=== PATIENT | female | born 1995 | race Caucasian/White ===

== ENCOUNTER → 2016-05-26 | Outpatient (CLI) | payer OTHER ==
--- NOTE | 2016-05-26 16:00 | CT ---
EXAMINATION TYPE: CT iac wo/w con DATE OF EXAM: 05/26/2016 3:38 PM COMPARISON: NONE HISTORY: Left sided hearing loss x [address] DLP: 409.00 mGycm Automated exposure control for dose reduction was used. CONTRAST: CT scan of the IACs is performed without and with IV Contrast, patient injected with 100 mL of Omnipa que 300. FINDINGS: The external auditory canals are patent bilaterally. The middle ear ossicles are symmetric and unremarkable. There is no evidence of suspicious surrounding soft tissue density to suggest cho lesteatoma. The scutum is preserved bilaterally. The cochlea and the semicircular canals are symmet liliya and unremarkable. Vestibular aqueduct and internal carotid canal appear unremarkable. Temporoma ndibular joints are maintained bilaterally. Cerebellar pontine angles appear clear. No suspicious en hancement is evident within the internal auditory canals. There is some minimal fluid within the left maxillary sinus. Correlate for acute left maxillary sinus itis. Technique within the right maxillary sinus with air cells. Mastoid air cells has some fluid johanna ng the superior lateral right midportion. Correlate for right mastoiditis. IMPRESSION: 1. Clinical correlation recommended for right mastoiditis. 2. Clinical correlation recommended for mild left maxillary sinusitis.
== END | disposition home or self-care (01) ==
LOC: RADCTMAIN 14:47
PROVIDERS: ATTEND Otolaryngology
DX: H91.90 Unspecified hearing loss, unspecified ear (principal); R93.8 Abnormal findings on diagnostic imaging of other specified body structures
CPT/HCPCS: 70482; Q9967

== ENCOUNTER → 2017-11-22 | Outpatient (CLI) | payer OTHER ==
--- NOTE | 2017-11-22 15:32 | XR ---
EXAMINATION TYPE: XR hand complete RT DATE OF EXAM: 11/22/2017 COMPARISON: NONE HISTORY: Pain TECHNIQUE: Three views are submitted. FINDINGS: The osseous structures are intact. The joint spaces are preserved and there is no acute fracture or dislocation. IMPRESSION: 1. No definite acute fracture or dislocation if symptoms persist, follow-up study in 7 to 10 days wo uld be suggested
--- NOTE | 2017-11-22 15:34 | XR ---
EXAMINATION TYPE: XR wrist complete RT DATE OF EXAM: 11/22/2017 COMPARISON: NONE HISTORY: Pain TECHNIQUE: Four views submitted. FINDINGS: The osseous structures are intact. The joint spaces are preserved and there is no acute fracture or dislocation. IMPRESSION: 1. No definite acute fracture or dislocation if symptoms persist, follow-up study in 7 to 10 days wo uld be suggested
== END | disposition home or self-care (01) ==
LOC: RADXRMAIN 15:04
PROVIDERS: ATTEND Emergency Medicine
DX: S63.501A Unspecified sprain of right wrist, initial encounter (principal)

== ENCOUNTER → 2018-08-30 | Outpatient (CLI) | payer BC ==
--- NOTE | 2018-08-31 00:02 | MR ---
EXAMINATION TYPE: MR wrist RT wo con DATE OF EXAM: 08/30/2018 COMPARISON: None HISTORY: Rt wrist pain Standard multiplanar, multisequence MRI departmental protocol Multiplanar, multisequence images of the right wrist were acquired. FINDINGS: The intercarpal joint spaces overall are fairly normal. There is slight widening of the sca pholunate joint space. There is slight increased fluid at the dorsal aspect of the scapholunate joint space. This measures 5 x 3 mm. Distal radius and ulna appear intact. There is no evidence of a fracture. Proximal metacarpa ls appear intact. The triangular cartilage appears intact. The flexor and extensor tendons of the wr ist appear intact. I see no focal bone destruction. IMPRESSION: There is slight widening of the scapholunate joint space consistent with ligamentous tear. This is no t significantly different than previous wrist x-ray of 08/22/2018 and 11/22/2017. There is small synovi al cyst on the dorsal aspect of the scapholunate joint.
== END | disposition home or self-care (01) ==
LOC: RADMRIMAIN 15:58
PROVIDERS: ATTEND Orthopaedic Surgery
DX: M71.331 Other bursal cyst, right wrist (principal)

== ENCOUNTER 2019-11-27 20:44 | Emergency (ER) | payer BC ==
[2019-11-27 21:02] VITALS: RESP 16
[2019-11-27] MEDS ORDERED: ONDANSETRON 4 MG/2 ML VIAL IVP STA (21:09)
[2019-11-27] MEDS ORDERED: PANTOPRAZOLE 40 MG/10 ML VIAL IVP STA (21:09)
[2019-11-27] MEDS ORDERED: SODIUM CHLORIDE 0.9% 1,000 ML IV STA (21:09)
--- NOTE | 2019-11-27 21:20 | ED ---
Abdominal Pain HPI - General Chief Complaint: Abdominal Pain Stated Complaint: Flank Pain Time Seen by Provider: 11/27/19 21:07 Source: patient Mode of arrival: ambulatory Limitations: no limitations - History of Present Illness Initial Comments: Patient is a 24-year-old female presenting to the emergency department with a chief complaint of abdominal pain. Patient states symptoms started yesterday when she had one episode of nonbilious, nonbloody vomiting. Patient states the pain today has been on and off. Patient states pain is located in the right flank region with radiation to the right lower quadrant region. Patient states sitting or laying makes the pain worse. Patient does report some nausea but no vomiting today. Patient does have history of GERD and did take omeprazole today. Patient not concerned for any STDs. Denies any vaginal bleeding or discharge. She does have history of cholecystectomy. Denies any night sweats fevers or chills. - Related Data Home Medications Medication Instructions Recorded Confirmed Omeprazole [PriLOSEC] 20 mg PO HS 11/20/14 12/29/14 Ondansetron [Zofran] 1 tab PO Q6H PRN 11/20/14 12/31/14 Desogestrel-Ethinyl Estradiol 1 tab PO DAILY 12/29/14 12/29/14 [Apri 28 Day Tablet] Allergies Allergy/AdvReac Type Severity Reaction Status Date / Time No Known Allergies Allergy Verified 11/27/19 21:02 Review of Systems ROS Statement: Those systems with pertinent positive or pertinent negative responses have been documented in the HPI. ROS Other: All systems not noted in ROS Statement are negative. Past Medical History Past Medical History: No Reported History, GERD/Reflux History of Any Multi-Drug Resistant Organisms: None Reported Past Surgical History: Cholecystectomy, Ear Surgery Additional Past Surgical History / Comment(s): BMT CHILD Past Anesthesia/Blood Transfusion Reactions: Motion Sickness Past Psychological History: No Psychological Hx Reported Past Alcohol Use History: None Reported Past Drug Use History: None Reported - Past Family History Mother Family Medical History: No Reported History General Exam Limitations: no limitations General appearance: alert, in no apparent distress Head exam: Present: atraumatic, normocephalic, normal inspection Eye exam: Present: normal appearance, PERRL, EOMI Pupils: Present: normal accommodation ENT exam: Present: normal exam, normal oropharynx, mucous membranes moist, TM's normal bilaterally, normal external ear exam Neck exam: Present: normal inspection, full ROM. Absent: tenderness Respiratory exam: Present: normal lung sounds bilaterally. Absent: wheezes, rales Cardiovascular Exam: Present: regular rate, normal rhythm, normal heart sounds GI/Abdominal exam: Present: soft, tenderness (Right lower quadrant. Positive McBurney point tenderness. Positive obturator and psoas. Negative Rovsing.), normal bowel sounds. Absent: distended, guarding, rebound, rigid, organomegaly, mass, bruit, pulsatile mass, hernia Extremities exam: Present: normal inspection, full ROM, normal capillary refill. Absent: tenderness Back exam: Present: normal inspection, full ROM, CVA tenderness (R) (Mild). Absent: tenderness, CVA tenderness (L), muscle spasm, paraspinal tenderness Neurological exam: Present: alert, oriented X3, normal gait Psychiatric exam: Present: normal affect, normal mood Skin exam: Present: warm, dry, intact, normal color Course Vital Signs 11/27/19 21:00 Temperature 98.1 F Pulse Rate 103 H Respiratory 16 Rate Blood Pressure 138/91 O2 Sat by Pulse 98 Oximetry Medical Decision Making - Medical Decision Making Patient is a 24-year-old female presenting to the emergency department with chief complaint abdominal pain on exam patient is right lower quadrant abdominal pain with a positive McBurney point, so is an obturator but negative Rovsing. CBC CMP UA is unremarkable. Patient is not . Vitals are stable. Given the clinical indication, CT abdomen and pelvis was obtained showing no signs of appendicitis. Patient was given Tylenol, antibiotics and fluids. On R eevaluation patient did report improvement in symptoms. Her last menstrual period was one week ago. Return parameters were thoroughly discussed the patient is understanding and agreeable. She was advised to follow with primary care physician. Case discussed with physician. - Lab Data Result diagrams: 11/27/19 21:23 11/27/19 21:23 Lab Results 11/27/19 11/27/19 11/27/19 Range/Units 21:23 21:23 21:23 WBC 6.2 (3.8-10.6) k/uL RBC 4.59 (3.80-5.40) m/uL Hgb 13.0 (11.4-16.0) gm/dL Hct 39.9 (34.0-46.0) % MCV 86.9 (80.0-100.0) fL MCH 28.2 (25.0-35.0) pg MCHC 32.5 (31.0-37.0) g/dL RDW 12.7 (11.5-15.5) % Plt Count 243 (150-450) k/uL Neutrophils % 48 % Lymphocytes % 40 % Monocytes % 5 % Eosinophils % 3 % Basophils % 1 % Neutrophils # 3.0 (1.3-7.7) k/uL Lymphocytes # 2.5 (1.0-4.8) k/uL Monocytes # 0.3 (0-1.0) k/uL Eosinophils # 0.2 (0-0.7) k/uL Basophils # 0.0 (0-0.2) k/uL Sodium 135 L (137-145) mmol/L Potassium 4.2 (3.5-5.1) mmol/L Chloride 103 (98-107) mmol/L Carbon Dioxide 23 (22-30) mmol/L Anion Gap 9 mmol/L BUN 10 (7-17) mg/dL Creatinine 0.58 (0.52-1.04) mg/dL Est GFR (CKD-EPI)AfAm >90 (>60 ml/min/1.73 sqM) Est GFR (CKD-EPI)NonAf >90 (>60 ml/min/1.73 sqM) Glucose 92 (74-99) mg/dL Calcium 9.3 (8.4-10.2) mg/dL Total Bilirubin 0.6 (0.2-1.3) mg/dL AST 31 (14-36) U/L ALT 20 (4-34) U/L Alkaline Phosphatase 37 L (38-126) U/L Total Protein 7.3 (6.3-8.2) g/dL Albumin 4.6 (3.5-5.0) g/dL Lipase 155 (23-300) U/L Urine Color Colorless Urine Appearance Clear (Clear) Urine pH 6.5 (5.0-8.0) Ur Specific [place] 1.002 (1.001-1.035) Urine Protein Negative (Negative) Urine Glucose (UA) Negative (Negative) Urine Ketones Negative (Negative) Urine Blood Negative (Negative) Urine Nitrite Negative (Negative) Urine Bilirubin Negative (Negative) Urine Urobilinogen <2.0 (<2.0) mg/dL Ur Leukocyte Esterase Small H (Negative) Urine RBC <1 (0-5) /hpf Urine WBC 6 H (0-5) /hpf Ur Squamous Epith Cells <1 (0-4) /hpf Urine Bacteria Rare H (None) /hpf Urine HCG, Qual (Not Detectd) 11/27/19 Range/Units 21:23 WBC (3.8-10.6) k/uL RBC (3.80-5.40) m/uL Hgb (11.4-16.0) gm/dL Hct (34.0-46.0) % MCV (80.0-100.0) fL MCH (25.0-35.0) pg MCHC (31.0-37.0) g/dL RDW (11.5-15.5) % Plt Count (150-450) k/uL Neutrophils % % Lymphocytes % % Monocytes % % Eosinophils % % Basophils % % Neutrophils # (1.3-7.7) k/uL Lymphocytes # (1.0-4.8) k/uL Monocytes # (0-1.0) k/uL Eosinophils # (0-0.7) k/uL Basophils # (0-0.2) k/uL Sodium (137-145) mmol/L Potassium (3.5-5.1) mmol/L Chloride (98-107) mmol/L Carbon Dioxide (22-30) mmol/L Anion Gap mmol/L BUN (7-17) mg/dL Creatinine (0.52-1.04) mg/dL Est GFR (CKD-EPI)AfAm (>60 ml/min/1.73 sqM) Est GFR (CKD-EPI)NonAf (>60 ml/min/1.73 sqM) Glucose (74-99) mg/dL Calcium (8.4-10.2) mg/dL Total Bilirubin (0.2-1.3) mg/dL AST (14-36) U/L ALT (4-34) U/L Alkaline Phosphatase (38-126) U/L Total Protein (6.3-8.2) g/dL Albumin (3.5-5.0) g/dL Lipase (23-300) U/L Urine Color Urine Appearance (Clear) Urine pH (5.0-8.0) Ur Specific [place] (1.001-1.035) Urine Protein (Negative) Urine Glucose (UA) (Negative) Urine Ketones (Negative) Urine Blood (Negative) Urine Nitrite (Negative) Urine Bilirubin (Negative) Urine Urobilinogen (<2.0) mg/dL Ur Leukocyte Esterase (Negative) Urine RBC (0-5) /hpf Urine WBC (0-5) /hpf Ur Squamous Epith Cells (0-4) /hpf Urine Bacteria (None) /hpf Urine HCG, Qual Not Detected (Not Detectd) Disposition Clinical Impression: Abdominal pain, Nausea & vomiting Disposition: HOME SELF-CARE Condition: Stable Instructions (If sedation given, give patient instructions): Abdominal Pain (ED) Additional Instructions: Alternate between Tylenol and Motrin for pain control. Follow-up with a primary care physician. Return to emergency department if symptoms worsen. Is patient prescribed a controlled substance at d/c from ED?: No Referrals: Dale Schultz DO [Primary Care Provider] - 1-2 days Time of Disposition: 22:54
[2019-11-27 21:35] LABS: Basophils % (A) 1 %; Eosinophils # (A) 0.2 k/uL (0-0.7); Eosinophils % (A) 3 %; HCT 39.9 % (34.0-46.0); Lymphocytes # (A) 2.5 k/uL (1.0-4.8); Lymphocytes % (A) 40 %; MCH 28.2 pg (25.0-35.0); MCHC 32.5 g/dL (31.0-37.0); MCV 86.9 fL (80.0-100.0); Mean Platelet Volume 8.2; Monocytes # (A) 0.3 k/uL (0-1.0); Monocytes % (A) 5 %; Neutrophils % (A) 48 %; Platelet Count 243 k/uL (150-450); RBC 4.59 m/uL (3.80-5.40); RDW 12.7 % (11.5-15.5); WBC 6.2 k/uL (3.8-10.6)
[2019-11-27 21:36] LABS: Appearance,Urine Clear (Clear); Bacteria,Urine Rare /hpf; Bilirubin,Urine Negative (Negative); Blood,Urine Negative (Negative); Color,Urine Colorless; Glucose,Urine (UA) Negative (Negative); Ketones,Urine Negative (Negative); Leukocyte Esterase,Urine Small (Negative); Nitrite,Urine Negative (Negative); PH, Urine 6.5 (5.0-8.0); Protein,Urine Negative (Negative); RBC,Urine <1 /hpf (0-5); Specific Gravity,Urine 1.002 (1.001-1.035); Squamous Epithelial Cell,Urine <1 /hpf (0-4); Urobilinogen,Urine <2.0 mg/dL (<2.0); WBC,Urine 6 /hpf (0-5)
[2019-11-27] MEDS ORDERED: ACETAMINOPHEN TAB 325 MG TAB PO STA (21:40)
[2019-11-27 21:42] LABS: ALT 20 U/L (4-34); AST 31 U/L (14-36); African American GFR (CKD) >90 (>60 ml/min/1.73 sqM); Albumin 4.6 g/dL (3.5-5.0); Alkaline Phosphatase 37 U/L (38-126); Anion Gap 9 mmol/L; Blood Urea Nitrogen 10 mg/dL (7-17); Calcium 9.3 mg/dL (8.4-10.2); Carbon Dioxide 23 mmol/L (22-30); Chloride 103 mmol/L (98-107); Glucose 92 mg/dL (74-99); Non-African American GFR(CKD) >90 (>60 ml/min/1.73 sqM); Potassium 4.2 mmol/L (3.5-5.1); Sodium 135 mmol/L (137-145); Total Bilirubin 0.6 mg/dL (0.2-1.3); Total Protein 7.3 g/dL (6.3-8.2)
--- NOTE | 2019-11-27 22:15 | CT ---
EXAMINATION TYPE: CT abdomen pelvis w con DATE OF EXAM: 11/27/2019 COMPARISON: None HISTORY: RLQ pain CT DLP: 705.3 mGycm Automated exposure control for dose reduction was used. CONTRAST: Performed with IV Contrast, patient injected with 100 mL of Isovue 300. Images obtained from the diaphragm to the floor the pelvis with IV contrast. FINDINGS: Lung bases are clear. There is no pleural effusion. Heart size is normal. There is no pericardial eff usion. Liver spleen pancreas stomach appear intact. Bile ducts are not dilated. There are clips from cholecy stectomy. There is no adrenal mass. Kidneys show satisfactory contrast opacification. There is no hyd ronephrosis. Ureters are not dilated. There is no retroperitoneal adenopathy. Bladder distends smooth ly. Uterus is anteverted. There is no free fluid in the pelvis. There is no sign of a pelvic mass. Lumbar spine is intact. Bony pelvis appears intact. There is no mesenteric edema. There is no ascites or free air. There is no sign of a bowel obstructio n. There is no sign of thickened appendix. Appendix appears to be partly seen on coronal image 40. IMPRESSION: Negative CT scan abdomen and pelvis. I do not see a cause for right lower quadrant pain.
[2019-11-27 23:16] VITALS: BP 116/76; PULSE 65; TEMP 99.2
== END 2019-11-27 23:12 | disposition home or self-care (01) ==
LOC: EC 20:44
DX: R10.31 Right lower quadrant pain (principal); R11.2 Nausea with vomiting, unspecified; R10.813 Right lower quadrant abdominal tenderness; K21.9 Gastro-esophageal reflux disease without esophagitis; Z79.899 Other long term (current) drug therapy; Z90.49 Acquired absence of other specified parts of digestive tract
CPT/HCPCS: 36415; 80053; 83690; 85025; 81001; 81025; 74177; 99284; 96374; 96375; 96361 ×2; J2405; C9113; Q9967

== ENCOUNTER 2019-12-10 11:17 | Day surgery (SDC) | payer BC ==
[2019-12-06 10:27] VITALS: BMI 22.4
[~2019-12-10 11:17] MED LIST: LACTATED RINGERS 1,000 ML IV SCH; LIDOCAINE 1% (10MG/ML) FOR IV START INTRADERMA PRN
[2019-12-10] MEDS ORDERED: LACTATED RINGERS 1,000 ML IV ONE (11:28)
[2019-12-10 11:37] VITALS: TEMP 98.1
[2019-12-10] MEDS ORDERED: PROPOFOL 10 MG/ML 20 ML VIAL IV ONE (12:11)
--- NOTE | 2019-12-10 12:14 | P.GSHP ---
History of Present Illness H&P Date: 12/10/19 Chief Complaint: GERD 24-year-old female known to our service. Patient has had increasing reflux. Last EGD 5 years ago. Patient had mild gastritis and a small hernia at that time. Recently went to 40 mg omeprazole once daily. Seems to be doing better. No dysphagia. Past Medical History Past Medical History: GERD/Reflux Additional Past Medical History / Comment(s): migrainres, History of Any Multi-Drug Resistant Organisms: None Reported Past Surgical History: Cholecystectomy, Ear Surgery Additional Past Surgical History / Comment(s): BMT CHILD, EGD Past Anesthesia/Blood Transfusion Reactions: Motion Sickness Smoking Status: Never smoker - Past Family History Mother Family Medical History: No Reported History Medications and Allergies Home Medications Medication Instructions Recorded Confirmed Type Desogestrel-Ethinyl Estradiol 1 tab PO DAILY 12/29/14 12/10/19 History [Apri 28 Day Tablet] Omeprazole 40 mg PO BID 12/06/19 12/10/19 History Allergies Allergy/AdvReac Type Severity Reaction Status Date / Time No Known Allergies Allergy Verified 12/10/19 11:34 Surgical - Exam Vital Signs Temp Pulse Resp BP Pulse Ox 98.1 F 87 16 134/77 96 12/10/19 11:36 12/10/19 11:36 12/10/19 11:36 12/10/19 11:36 12/10/19 11:36 Physical exam: General: Well-developed, well-nourished HEENT: Normocephalic, sclerae nonicteric Abdomen: Nontender, nondistended Extremities: No edema Neuro: Alert and oriented Assessment and Plan (1) GERD (gastroesophageal reflux disease) Narrative/Plan: Will proceed with upper endoscopy. Current Visit: Yes Status: Acute Code(s): K21.9 - GASTRO-ESOPHAGEAL REFLUX DISEASE WITHOUT ESOPHAGITIS SNOMED Code(s): 806005023
[2019-12-10] MEDS ORDERED: IV FLUID CONTINUATION 1,000 ML IV ONE (12:24)
--- NOTE | 2019-12-10 12:24 | P.PCN ---
Date of Procedure: 12/10/19 Procedure(s) Performed: Preoperative Dx: GERD Postoperative Dx: Minimal gastritis, small hiatal hernia Procedure: EGD with Bx Anesthesia: Sedation Endoscopist: Dr. Crane Specimens: Antrum Endoscopic Procedure: The patient was on the endoscopy table in the left decubitus position. The Olympus gastroscope was inserted into the oropharynx and passed under direct visualization to the region of the third portion of the duodenum. From that point the scope was slowly withdrawn inspecting all surfaces carefully. There were no neoplastic inflammatory or polypoid lesions throughout the duodenum. The pylorus was widely patent. The stomach was carefully inspected. There was and mild gastritis present. A biopsy of the antrum took place to rule out H. pylori. Retroflexion revealed a very small hiatal hernia. The GE junction was present only about 0.5 cm above the diaphragmatic hiatus. This was actually smaller than on her last EGD. The esophagus was then carefully examined. There were no neoplastic inflammatory or polypoid lesions throughout the visualized esophagus. The patient was then ta brian to the recovery room in stable condition per anesthesia guidelines. Recommendations: Continue antiacid therapy. Surgical options will be discussed.
[2019-12-10 12:48] VITALS: BP 104/71; PULSE 80; RESP 18
== END 2019-12-10 12:54 | disposition home or self-care (01) ==
LOC: ORWHC2ENDO 11:17
PROVIDERS: ATTEND Surgery
DX: K29.50 Unspecified chronic gastritis without bleeding (principal); K44.9 Diaphragmatic hernia without obstruction or gangrene; K21.9 Gastro-esophageal reflux disease without esophagitis; Z86.69 Personal history of other diseases of the nervous system and sense organs; Z90.49 Acquired absence of other specified parts of digestive tract; Z98.890 Other specified postprocedural states; Z87.898 Personal history of other specified conditions; Z79.899 Other long term (current) drug therapy; Z79.890 Hormone replacement therapy
CPT/HCPCS: 81025; 88305; 43239; J2704

== ENCOUNTER → 2020-02-28 | Outpatient (CLI) | payer BC | END | disposition home or self-care (01) | LOC: LABWHC1 15:12 | PROVIDERS: ATTEND Family Medicine | DX: Z03.818 Encounter for observation for suspected exposure to other biological agents ruled out (principal) | CPT/HCPCS: U0003; C9803 ==

== ENCOUNTER → 2022-02-28 | Outpatient (CLI) | payer BC ==
--- NOTE | 2022-03-01 10:09 | US ---
EXAMINATION TYPE: US kidneys/renal and bladder DATE OF EXAM: 02/28/2022 COMPARISON: CT 11/27/2019, US 03/16/2012 CLINICAL HISTORY: N39.9 UTI. UTI. Hx cholecystectomy EXAM MEASUREMENTS: Right Kidney: 10.8 x 5.7 x 4.5 cm Left Kidney: 10.9 x 6.1 x 5.1 cm Right Kidney: No hydronephrosis or masses seen Left Kidney: No hydronephrosis or masses seen Bladder: Appears anechoic. Bilateral Jets seen: Yes IMPRESSION: 1. Normal renal ultrasound
== END | disposition home or self-care (01) ==
LOC: RADUSWWP 15:27
PROVIDERS: ATTEND Urology
DX: N39.9 Disorder of urinary system, unspecified (principal)
CPT/HCPCS: 76770

== ENCOUNTER → 2024-02-20 | Outpatient (CLI) | payer BC ==
--- NOTE | 2024-02-20 14:44 | XR ---
EXAMINATION TYPE: XR KUB DATE OF EXAM: 02/20/2024 Comparison: None Clinical History: 28-year-old female N20.0 CALCULUS OF KIDNEY Findings: Cholecystectomy clips. Umbilical orientation. A couple BBs projecting at the left lower quadrant prob ably additional piercings. Clinically correlate. Lung bases are clear. No dilated small bowel. Minimal scattered stool. Air extends distally to the rectum. Otherwise, no suspicious calcification seen. Impression: There appear to be approximately 4 piercings. Clinically correlate. Cholecystectomy clips. Nonobstruc tive bowel gas pattern. [facility], , 02/20/2024 2:41 PM
== END ==
LOC: RADXRMAIN 14:23
PROVIDERS: ATTEND Urology
DX: N20.0 Calculus of kidney (principal)
CPT/HCPCS: 74018

== ENCOUNTER 2024-09-06 08:30 | Emergency (ER) | payer BC ==
[2024-09-06 08:35] VITALS: BP 129/84; PULSE 101; RESP 16; TEMP 98
--- NOTE | 2024-09-06 09:00 | ED ---
ENT HPI - General Chief complaint: ENT Stated complaint: Bloody Nose (6 Months PREG) Time Seen by Provider: 09/06/24 08:40 Source: patient, RN notes reviewed Mode of arrival: ambulatory Limitations: no limitations - History of Present Illness Initial comments: 28-year-old female presents emergency department with chief complaint of epistaxis. Patient states that she had some bleeding from her left nostril today but states that it has been for the last 1 hour from the right nostril. She states there is some clots noted she denies any headache or dizziness she states she been dealing with sinus congestion which she was diagnosed at another place with ear infection, sinus infection placed on antibiotics. She is 6 months denies any hypertension denies any blood thinners no other complaints. - Related Data Home Medications Medication Instructions Recorded Confirmed desogestreL-ethinyl estradioL 1 tab PO DAILY 12/29/14 12/10/19 [Apri 28 Day Tablet] Omeprazole 40 mg PO BID 12/06/19 12/10/19 Allergies Allergy/AdvReac Type Severity Reaction Status Date / Time No Known Allergies Allergy Verified 09/06/24 08:35 Review of Systems ROS Statement: Those systems with pertinent positive or pertinent negative responses have been documented in the HPI. ROS Other: All systems not noted in ROS Statement are negative. Past Medical History Past Medical History: GERD/Reflux Additional Past Medical History / Comment(s): migrainres, History of Any Multi-Drug Resistant Organisms: None Reported Past Surgical History: Cholecystectomy, Ear Surgery Additional Past Surgical History / Comment(s): BMT CHILD, EGD Past Anesthesia/Blood Transfusion Reactions: Motion Sickness Past Psychological History: No Psychological Hx Reported Smoking Status: Never smoker Past Alcohol Use History: None Reported Past Drug Use History: None Reported - Past Family History Mother Family Medical History: No Reported History General Exam Limitations: no limitations General appearance: alert, in no apparent distress Head exam: Present: atraumatic, normocephalic, normal inspection Eye exam: Present: normal appearance, PERRL, EOMI. Absent: scleral icterus, conjunctival injection, periorbital swelling ENT exam: Present: normal oropharynx, mucous membranes moist, TM's normal bilaterally, normal external ear exam. Absent: normal exam (There is active bleeding from right nostril) Neck exam: Present: normal inspection, full ROM. Absent: tenderness, meningismus, lymphadenopathy Respiratory exam: Present: normal lung sounds bilaterally. Absent: respiratory distress, wheezes, rales, rhonchi, stridor Cardiovascular Exam: Present: regular rate, normal rhythm, normal heart sounds. Absent: systolic murmur, diastolic murmur, rubs, gallop, clicks GI/Abdominal exam: Present: soft, normal bowel sounds. Absent: distended, tenderness, guarding, rebound, rigid Course Vital Signs 09/06/24 08:33 Temperature 98 F Pulse Rate 101 H Respiratory 16 Rate Blood Pressure 129/84 O2 Sat by Pulse 98 Oximetry Medical Decision Making - Medical Decision Making Was pt. sent in by a medical professional or institution (, NELLY, [employer], urgent care, hospital, or [place] health care facility...) When possible be specific @ -No Did you speak to anyone other than the patient for history (EMS, parent, family, police, friend...)? What history was obtained from this source @ -No Did you review nursing and triage notes (agree or disagree)? Why? @ -I reviewed and agree with nursing and triage notes Were old charts reviewed (outside hosp., previous admission, EMS record, old EKG, old radiological studies, urgent care reports/EKG's, [place] health care facility records)? Report findings @ -No old charts were reviewed Differential Diagnosis (chest pain, altered mental status, abdominal pain women, abdominal pain men, vaginal bleeding, weakness, fever, dyspnea, syncope, headache, dizziness, GI bleed, back pain, seizure, CVA, palpatations, mental health, musculoskeletal)? @ -Epistaxis, septal hematoma, nasal fracture EKG interpreted by me (3pts min.). @ -None X-rays interpreted by me (1pt min.). @ -None done CT interpreted by me (1pt min.). @ -None done U/S interpreted by me (1pt. min.). @ -None done What testing was considered but not performed or refused? (CT, X-rays, U/S, labs)? Why? @ -None What meds were considered but not given or refused? Why? @ -None Did you discuss the management of the patient with other professionals (professionals i.e. NELLY Esparza, [employer] TA[employer], lab, RT, psych nurse, social media content manager, legislative analyst, teacher, hydrographical technical officer, case maker)? Give summary @ -No Was smoking cessation discussed for >3mins.? @ -No Was critical care preformed (if so, how long)? @ -No Were there social determinants of health that impacted care today? How? (Homelessness, low income, unemployed, alcoholism, drug addiction, transportation, low edu. Level, literacy, decrease access to med. care, half-way, rehab)? @ -No Was there de-escalation of care discussed even if they declined (Discuss DNR or withdrawal of care, Hospice)? DNR status @ -No What co-morbidities impacted this encounter? (DM, HTN, Smoking, COPD, CAD, Cancer, CVA, ARF, Chemo, Hep., AIDS, mental health diagnosis, sleep apnea, morbid obesity)? @ -None Was patient admitted / discharged? Hospital course, mention meds given and route, prescriptions, significant lab abnormalities, going to OR and other pertinent info. @ -discharge patient presented for epistaxis this did resolve after Afrin, TXA and nasal clamp patient discharged in stable condition return parameters bridget. Undiagnosed new problem with uncertain prognosis? @ -No Drug Therapy requiring intensive monitoring for toxicity (Heparin, Nitro, Insulin, Cardizem)? @ -No Were any procedures done? @ -No Diagnosis/symptom? @ -Epistaxis Acute, or Chronic, or Acute on Chronic? @ -Acute Uncomplicated (without systemic symptoms) or Complicated (systemic symptoms)? @ -Uncomplicated Side effects of treatment? @ -No Exacerbation, Progression, or Severe Exacerbation? @ -No Poses a threat to life or bodily function? How? (Chest pain, [place], [place], pneumonia, PE, COPD, DKA, ARF, appy, cholecystitis, CVA, Diverticulitis, Homicidal, Suicidal, threat to staff... and all critical care pts) @ -No Disposition Clinical Impression: Epistaxis Disposition: HOME SELF-CARE Condition: Stable Instructions (If sedation given, give patient instructions): Nosebleed (ED) Additional Instructions: Please return to the Emergency Department if symptoms worsen or any other concerns. Is patient prescribed a controlled substance at d/c from ED?: No Referrals: Dale Schultz DO [Primary Care Provider] - 1-2 days Time of Disposition: 10:39
[2024-09-06] MEDS: OXYMETAZOLINE 0.05% NASL SPRAY 1 SPRAY BOTTLE NASAL STA (09:01)
[2024-09-06] MEDS: TRANEXAMIC ACID 1,000 MG/10 ML VIAL MISCELLANE ONE (10:15)
== END 2024-09-06 11:05 | disposition home or self-care (01) ==
LOC: EC 08:30
DX: O26.892 Other specified pregnancy related conditions, second trimester (principal); R04.0 Epistaxis; Z3A.27 27 weeks gestation of pregnancy
CPT/HCPCS: 99283